=== PATIENT | male | born 1985 | race Asian ===

== ENCOUNTER 2020-01-31 02:18 | Emergency (ER) | payer MEDICAID ==
[~2020-01-31] VITALS: Ht 165.1 cm; Wt 93.0 kg
[2020-01-31] MEDS ORDERED: morphine 4 MG/ML inj SYRINge IV ONE (03:00)
[2020-01-31] MEDS ORDERED: ondansetron/PF 4mg/2ml inj IV ONE (03:00)
--- NOTE | 2020-01-31 03:10 | NUR ---
The scanner will not work with the name identifyer. Registration called and a new bracelet was made, but it will not scan either. The MR and V number match. Good Ornelas RN at to double check medications and dosages and they were administered to the patient. Pain 12/16. Pt to CT via WC.
[2020-01-31 03:13] LABS: BASOPHILS % (AUTO) 0.2 % (0-1); EOSINOPHILS % (AUTO) 0.1 % (0-6); LYMPHOCYTES # (AUTO) 1.1 X10'3 (1.1-4.8); MEAN CORPUSCULAR HEMOGLOBIN 28.4 PG (27.0-31.0); MEAN CORPUSCULAR HGB CONC 33.9 g/dL (33.0-36.5); MEAN CORPUSCULAR VOLUME 83.8 FL (78-98); MEAN PLATELET VOLUME 9.1 FL (7.4-10.4); MONOCYTES # (AUTO) 0.5 X10'3 (0-0.9); NEUTROPHILS # (AUTO) 14.4 X10'3 (1.8-7.7); NEUTROPHILS % (AUTO) 89.7 % (42-75); PLATELET COUNT 240 X10'3 (140-440); RED BLOOD COUNT 6.56 X10'6 (4.70-6.10); RED CELL DISTRIBUTION WIDTH 13.4 % (11.5-14.5); WHITE BLOOD COUNT 16.1 X10'3 (4.5-11.0)
[2020-01-31 03:16] LABS: HEMOGLOBIN 18.6 g/dl (14.0-17.9)
[2020-01-31] MEDS ORDERED: normal saline 1000ml 1,000 ML IV ONE ×2 (03:20→05:20)
[2020-01-31 03:27] LABS: ALANINE AMINOTRANSFERASE 63 U/L (12-78); ALBUMIN 3.8 G/DL (3.4-5.0); ALBUMIN/GLOBULIN RATIO 0.7 (1.1-1.5); ALKALINE PHOSPHATASE 96 IU/L (46-116); ANION GAP 8 (8-16); ASPARTATE AMINO TRANSFERASE 25 U/L (10-37); BILIRUBIN,TOTAL 0.7 MG/DL (0.1-1.0); BLOOD UREA NITROGEN 20 MG/DL (7-18); BUN/CREATININE RATIO 18.2 (5.4-32.0); CALCIUM 10.3 MG/DL (8.5-10.1); CHLORIDE 103 MMOL/L (99-107); GLUCOSE 141 MG/DL (70-104); LIPASE 73 U/L (73-393); POTASSIUM 3.8 MMOL/L (3.5-5.1); SODIUM 140 MMOL/L (135-145); TOTAL CARBON DIOXIDE 29.2 MMOL/L (24-32); TOTAL PROTEIN 9.4 G/DL (6.4-8.2); eGFR 76 ML/MIN
[2020-01-31 06:05] LABS: CLARITY,URINE TURBID (Clear); COLOR,URINE YELLOW (Yellow); GLUCOSE, URINE NEGATIVE (Neg); KETONES,URINE TRACE mg/dl (Neg); LEUKOCYTE ESTERASE ,URINE NEGATIVE (Neg); NITRITES, URINE NEGATIVE (Neg); OCCULT BLOOD,URINE NEGATIVE (Neg); PH,URINE 5.5 (4.8-8.0); PROTEIN,URINE >=300 mg/dl (Neg)
[2020-01-31] MEDS ORDERED: NO HOME MEDS (06:09)
[2020-01-31 06:11] LABS: UA COLLECTION TYPE CLN CATCH MIDSTREAM
[2020-01-31 06:13] LABS: AMORPHOUS URATES 3+
[2020-01-31 06:14] LABS: BACTERIA,URINE NONE SEEN /HPF (Neg); RBC,URINE NONE SEEN /HPF (0-2); SQUAMOUS EPITHELIAL CELL,UR FEW /LPF (FEW); WBC,URINE 0-4 /HPF (0-4)
[2020-01-31] MEDS ORDERED: ONDA4TAB6 PO (06:18)
[2020-01-31] MEDS ORDERED: HYDR-3965 PO (06:18)
[2020-01-31] MEDS ORDERED: METO5TAB85 PO (06:18)
[2020-01-31 06:37] VITALS: BP 140/104
== END 2020-01-31 06:47 | disposition home or self-care (01) ==
LOC: ER 02:19
DX: K56.600 Partial intestinal obstruction, unspecified as to cause (principal); R10.31 Right lower quadrant pain; R11.2 Nausea with vomiting, unspecified; Z72.89 Other problems related to lifestyle; Z79.899 Other long term (current) drug therapy
CPT/HCPCS: 36415; 74176; 80053; 81001; 83690; 85025; 96361; 96374; 96375; 99285; J2270; J2405; J7030